=== PATIENT | male | born 1995 | race Caucasian/White ===

== ENCOUNTER → 2019-08-02 | Outpatient (CLI) | payer BC ==
[~2019-08-02] MED LIST: Augmentin 875-1 EACH PO
[2019-08-06 07:09] LABS: CHLAMYDIA TRACHOMATIS, NAA Negative (Negative); NEISSERIA GONORRHOEAE, NAA Negative (Negative)
== END | disposition home or self-care (01) ==
LOC: LAB EV 11:24 → LAB SHORT 11:24
PROVIDERS: Physician Assistant
DX: Z72.51 High risk heterosexual behavior (principal)
CPT/HCPCS: 87070; 87205

== ENCOUNTER → 2019-08-04 | Outpatient (CLI) | payer BC | END | disposition home or self-care (01) | LOC: LAB SHORT 19:14 → LAB EV 19:14 | DX: R30.9 Painful micturition, unspecified (principal) | CPT/HCPCS: 87086 ==

== ENCOUNTER → 2019-12-05 | Outpatient (CLI) | payer BC ==
[2019-12-06 07:10] LABS: HBSAG SCREEN Negative (Negative); HEP A AB, IGM Negative (Negative); HEP B CORE AB, IGM Negative (Negative); HEP C VIRUS AB <0.1 (0.0-0.9); HIV SCREEN 4TH GENERATION WRFX Non Reactive (Non Reactive)
[2019-12-10 00:07] LABS: CHLAMYDIA TRACHOMATIS, NAA Negative (Negative); NEISSERIA GONORRHOEAE, NAA Negative (Negative)
== END | disposition home or self-care (01) ==
LOC: LAB SHORT 09:25 → LAB EV 09:25
PROVIDERS: General Practice
DX: Z20.2 Contact with and (suspected) exposure to infections with a predominantly sexual mode of transmission (principal)
CPT/HCPCS: 80074; 86592; 87086; 87389; 87491; 87591

== ENCOUNTER → 2020-02-01 | Outpatient (CLI) | payer BC ==
[2020-02-03 08:09] LABS: HBSAG SCREEN Negative (Negative); HEP A AB, IGM Negative (Negative); HEP B CORE AB, IGM Negative (Negative); HEP C VIRUS AB 0.1 (0.0-0.9); HIV SCREEN 4TH GENERATION WRFX Non Reactive (Non Reactive)
[2020-02-06 14:09] LABS: CHLAMYDIA BY NAA Negative (Negative); GONOCOCCUS BY NAA Negative (Negative); TRICH VAG BY NAA Negative (Negative)
== END | disposition home or self-care (01) ==
LOC: LAB SHORT 17:35 → LAB EV 17:35
PROVIDERS: General Practice
DX: R36.9 Urethral discharge, unspecified (principal)
CPT/HCPCS: 80074; 86592; 87389; 87491; 87591; 87661

== ENCOUNTER → 2020-08-22 | Outpatient (CLI) | payer BC ==
[2020-08-24 06:10] LABS: HBSAG SCREEN Negative (Negative); HEP A AB, IGM Negative (Negative); HEP B CORE AB, IGM Negative (Negative); HEP C VIRUS AB <0.1 (0.0-0.9)
[2020-08-24 07:10] LABS: HIV SCREEN 4TH GENERATION WRFX Non Reactive (Non Reactive)
[2020-08-25 08:11] LABS: CHLAMYDIA BY NAA Negative (Negative); GONOCOCCUS BY NAA Negative (Negative); TRICH VAG BY NAA Negative (Negative)
== END | disposition home or self-care (01) ==
LOC: LAB EV 15:56 → LAB SHORT 15:56
PROVIDERS: General Practice
DX: Z20.2 Contact with and (suspected) exposure to infections with a predominantly sexual mode of transmission (principal)
CPT/HCPCS: 80074; 86592; 87086; 87389; 87491; 87591; 87661

== ENCOUNTER → 2022-12-22 | Outpatient (CLI) | payer BC ==
[2022-12-26 07:21] LABS: HSV-1 DNA Positive (Negative); HSV-2 DNA Negative (Negative)
== END ==
LOC: LAB SHORT 12-21 16:40 → LAB 12-21 16:40
PROVIDERS: Family Medicine
DX: A60.02 Herpesviral infection of other male genital organs (principal)
CPT/HCPCS: 87529

== ENCOUNTER → 2022-12-22 | Outpatient (CLI) | payer BC | LOC: LAB 16:40 → LAB SHORT 16:40 | PROVIDERS: Family Medicine | DX: A60.00 Herpesviral infection of urogenital system, unspecified (principal) | CPT/HCPCS: 86695; 86696 ==

== ENCOUNTER → 2023-05-03 | Outpatient (CLI) | payer BC ==
[2023-05-03 13:10] LABS: BASOPHILS ABSOLUTE AUTO 0.03 K/mm3 (0.00-0.23); BASOPHILS PERCENT AUTO 0 % (0-2); EOSINOPHILS ABSOLUTE AUTO 0.11 K/mm3 (0.00-0.68); EOSINOPHILS PERCENT AUTO 1 % (0-6); Hematocrit 47.5 % (37.0-53.0); Hemoglobin 16.3 g/dL (13.5-17.5); IMMATURE GRAN ABSOLUTE AUTO 0.04 K/mm3 (0.00-0.10); IMMATURE GRAN PERCENT AUTO 0 % (0-1); LYMPHOCYTES ABSOLUTE AUTO 1.21 K/mm3 (0.84-5.20); LYMPHOCYTES PERCENT AUTO 14 % (21-46); MONOCYTES ABSOLUTE AUTO 1.43 K/mm3 (0.16-1.47); MONOCYTES PERCENT AUTO 16 % (4-13); Mean Corpuscular HGB 32.8 pg (26.0-34.0); Mean Corpuscular HGB Conc 34.3 g/dL (31.5-36.5); Mean Corpuscular Volume 96 fL (80-100); Mean Platelet Volume 10.7 fL (9.1-12.4); NEUTROPHILS ABSOLUTE AUTO 6.09 K/mm3 (1.96-9.15); NEUTROPHILS PERCENT AUTO 69 % (41-73); Platelet Count 239 K/mm3 (150-400); RDW Coefficient Variation 11.8 % (11.7-14.2); RDW Standard Deviation 41.1 fL (35.1-46.3); Red Blood Cell Count 4.97 M/mm3 (4.30-5.90); White Blood Cell Count 8.91 K/mm3 (4.00-11.30)
[2023-05-03 14:45] LABS: Albumin/Globulin Ratio 1.1 (0.8-1.8); Bilirubin, Total 0.4 mg/dL (0.1-1.0); Calcium, Blood 8.8 mg/dL (8.5-10.1); Creatinine, Blood 0.69 mg/dL (0.60-1.20); Globulin, Blood 3.8 g/dL (2.2-4.0); Potassium, Blood 4.2 mmol/L (3.5-5.5); Total Protein, Blood 7.8 g/dL (6.4-8.2)
== END ==
LOC: LAB 12:52 → LAB SHORT 12:52
PROVIDERS: Physician Assistant Surgical
DX: R10.9 Unspecified abdominal pain (principal)
CPT/HCPCS: 80053; 83690; 85025

== ENCOUNTER 2025-05-25 17:22 | Observation (INO) | payer BC ==
[~2025-05-25] VITALS: Ht 167.6 cm; Wt 91.5 kg
[2025-05-25] MEDS ORDERED: FentaNYL Citrate 50 MCG/ML 2 ML Injection IV PRN (21:40)
[2025-05-25] MEDS ORDERED: HYDROcodone 5-APAP 325 TAB PO PRN (21:40)
[2025-05-25] MEDS ORDERED: Ondansetron HCl 2 MG / ML 2ML Vial IV PRN (21:45)
[2025-05-25] MEDS ORDERED: Piperacillin/Tazobactam Sod 3.375 GM in NS 100 ML IV SCH (22:00)
[2025-05-25 22:49] VITALS: BP 138/78
[2025-05-26] VITALS (8 sets, daily range): BP systolic 111–149; BP diastolic 66–98
[2025-05-26 04:42] LABS: BASOPHILS ABSOLUTE AUTO 0.06 K/mm3 (0.00-0.23); BASOPHILS PERCENT AUTO 1 % (0-2); EOSINOPHILS ABSOLUTE AUTO 0.31 K/mm3 (0.00-0.68); EOSINOPHILS PERCENT AUTO 3 % (0-6); Hematocrit 40.2 % (37.0-53.0); Hemoglobin 14.4 g/dL (13.5-17.5); IMMATURE GRAN ABSOLUTE AUTO 0.04 K/mm3 (0.00-0.10); IMMATURE GRAN PERCENT AUTO 0 % (0-1); LYMPHOCYTES ABSOLUTE AUTO 2.45 K/mm3 (0.84-5.20); LYMPHOCYTES PERCENT AUTO 27 % (21-46); MONOCYTES ABSOLUTE AUTO 1.10 K/mm3 (0.16-1.47); MONOCYTES PERCENT AUTO 12 % (4-13); Mean Corpuscular HGB Conc 35.8 g/dL (31.5-36.5); Mean Corpuscular Volume 96 fL (80-100); NEUTROPHILS ABSOLUTE AUTO 5.08 K/mm3 (1.96-9.15); NEUTROPHILS PERCENT AUTO 56 % (41-73); NRBC ABSOLUTE 0.00 K/mm3 (0.00-0.02); NRBC Auto 0.0 /100 WBC (0.0-0.2); Platelet Count 253 K/mm3 (150-400); RDW Coefficient Variation 11.3 % (11.7-14.2); RDW Standard Deviation 39.9 fL (35.1-46.3)
[2025-05-26 05:01] LABS: Anion Gap 8.0 mmol/L (3-11); Blood Urea Nitrogen 15.0 mg/dL (8-24); CO2, Blood 28.0 mmol/L (21-32); Calcium, Blood 8.8 mg/dL (8.5-10.1); Chloride, Blood 106.0 mmol/L (98-108); Creatinine, Blood 0.96 mg/dL (0.60-1.20); Glucose, Blood 104.0 mg/dL (70-99); Potassium, Blood 3.6 mmol/L (3.5-5.5); Sodium, Blood 138.0 mmol/L (136-145)
--- NOTE | 2025-05-26 07:19 | NUR ---
ASSUMED CARE AT 2235. A/Ox4, VSS ON RA. SPOUSE ROOMING IN. PT REPORTS SHARP RLQ PAIN, DECLINED MEDICATION THIS SHIFT. CLEAR LIQUID DIET OVERNIGHT. LR AT 125 ML/HR. PT DENIES NAUSEA, SOB, OTHER COMPLAINTS. UP AD RAIMUNDO IN ROOM. BED IN LOW POSITION, CALL LIGHT IN REACH.
[2025-05-26] MEDS ORDERED: NS 1,000 ML IV ONE (12:37)
[2025-05-26] MEDS ORDERED: NS 1,000 ML IV SCH (12:55)
[2025-05-26] MEDS ORDERED: Bupivacaine 0.5% HCl 5 MG/ML 30MLVIAL ONE (13:07)
[2025-05-26] MEDS ORDERED: Midazolam HCl 1MG / ML 2ML Vial ONE (13:22)
[2025-05-26] MEDS ORDERED: FentaNYL Citrate 50 MCG/ML 2 ML Injection ONE (13:22)
[2025-05-26] MEDS ORDERED: Rocuronium Bromide 10 MG/ML 5ML Injection IV ONE (13:23)
[2025-05-26] MEDS ORDERED: Dexmedetomidine HCL 200 MCG / 2 ML ONE (13:26)
[2025-05-26] MEDS ORDERED: Dexamethasone Sod Phos 10 MG/ML 1ML VIAL ONE (13:42)
[2025-05-26] MEDS ORDERED: FentaNYL Citrate 50 MCG/ML 5 ML Injection ONE (13:56)
[2025-05-26] MEDS ORDERED: Ondansetron HCl 2 MG / ML 2ML Vial ONE (14:08)
[2025-05-26] MEDS ORDERED: Sugammadex Sodium 200 MG/2ML SDV (100 MG/ML) ONE (14:08)
--- NOTE | 2025-05-26 14:55 | NUR ---
[id number] TIFFANY FROM PACU CALLED TO GIVE REPORT ON PATIENT COMING BACK TO [phone]
--- NOTE | 2025-05-26 16:51 | NUR ---
SHIFT SUMMARY PATIENT IS A&OX4 PLEASANT AND COOPERATIVE WITH CARE. USES THE CALL SYSTEM APPROPRIATELY AND IS ABLE TO MAKE NEEDS KNOWN. HE IS ON ROOM AIR AND DOES NOT HAVE TELEMETRY. HE HAD A SUCCESSFUL LAPRASCOPIC APPENDECTOMY AND WAS WITH THE OR FROM APPROXIMATELY [phone]. HE HAS BEEN TOLERATING PO FLUIDS AND REGULAR DIET. MEDICATED FOR PAIN PER EMAR, AND GIVEN A ICE PACK FOR THE INCISIONS IN HIS ABDOMEN. HIS PAIN IS WELL CONTROLLED. ICISIONS CLOSURES ARE C/D/I. THERE IS NO BLOOD OR OTHER DRAINAGE X3 SITES. THE PATIENT HAS NOT PASSED GAS AT THIS TIME. PATIENTS PARTNER IS BRINGING IN OUTSIDE FOOD AND FORGOING THE HOSITAL DINNER. HE IS SITTING UP IN BED, BED LOW AND LOCKED. CALL LIGHT IN REACH.
--- NOTE | 2025-05-26 21:19 | NUR ---
A/Ox4. PT DISCHARGED, TRANSPORTED BY . EDUCATION PROVIDED FOR MEDICATION, SURGICAL SITE CARE AND LIFTING PRECAUTIONS. ALL QUESTIONS ANSWERED, PT VERBALIZED UNDERSTANDING. DEPARTED AT 2014. PIV REMOVED FROM LAC.
== END 2025-05-26 20:20 | disposition home or self-care (01) ==
LOC: ER 17:22 → ERHOLD 17:23 → MEDS 17:23
PROVIDERS: ADMIT Surgery
PROC: 0DTJ4ZZ Resection of Appendix, Percutaneous Endoscopic Approach (ICD-10-PCS; principal; 2025-05-26 13:00)
DX: K35.80 Unspecified acute appendicitis (principal)
CPT/HCPCS: 36415; 74177; 80048; 85025; 88304; 96365; 96366; 99285-25; A9270; G0378; J1100; J2250; J2405; J2543; J2704; J3010; J7030; J7120; Q9967